=== PATIENT | female | born 1980 | race Caucasian/White ===

== ENCOUNTER 2025-05-01 14:03 | Emergency (ER) | payer BC ==
[~2025-05-01] VITALS: Ht 165.1 cm; Wt 102.1 kg
[2025-05-01 14:13] VITALS: TEMP 98.2
--- NOTE | 2025-05-01 14:18 | Physician Documentation ---
History of Present Illness Chief Complaint: Abdominal Pain w/vomiting Stated Complaint: ABD PAIN Time Seen by MD: 14:16 HPI Is a 44-year-old female who presents to the emergency department for onset of right lower quadrant abdominal pain that began last evening around 6:00 p.m.. She denies any chills or fever, but does note that she has had one episode of vomiting. Soft stools. No dysuria. No previous abd surgery hx. Medication Reconciliation Allergies: Coded Allergies: Penicillins (Verified Allergy, Unknown, 05/01/25) Scheduled Ciprofloxacin HCl (Cipro), 1 TAB PO Q12H Metronidazole* (Flagyl*), 1 TAB PO Q8H Scheduled PRN Hydrocodone Bit/Acetaminophen 5/325 MG (Pratts 5/325 MG), 1 TAB PO TID PRN PRN for pain Ondansetron 8mg ODT (Ondansetron Odt), 1 TAB PO TID PRN for nausea/vomiting Review of Systems ROS As stated above in the HPI, otherwise all systems are reviewed and negative. Physical Exam Vital Signs: Temperature: 98.2, Source: Oral, Heart Rate: 106, Respiratory Rate: 18, BP: 140/80, Pulse Oximetry: 96, Weight: 102.100 Oxygen Flow Rate: 0 Physical Exam General: Alert, mild distress. Neck: Full range of motion. Respiratory: Lungs clear, no respiratory distress. Chest: No accessory muscle use. Cardiovascular: Regular rate and rhythm, no murmurs. Gastrointestinal: Soft, TTP RLQ with guarding, nondistended. Bowels sounds present. Extremities: Normal range of motion, no deformity. Neurologic: Oriented x4. Psychiatric: Normal mood and affect. Skin: Normal color, warm and dry. No edema, no ecchymosis. Progress EKG/XRAY/CT/US/VASC/MRI CT : Impression [facility] [address], [place], [place] - [address] CAT SCAN Patient: FIDEL WALTERS Medical Record: [id number] [facility] : 1980, Age: 44 Sex: Female Location: ER Patient Status: REG ER Service Date/Time: 05/01/25 1631 Ordering Physician: BRITTANY COYLE NP Exam: CT ABDOMEN PELVIS COMPUTERIZED TOMOGRAPHY ABDOMEN AND PELVIS WITH CONTRAST REASON FOR EXAM: Right lower quadrant abdominal pain, leukocytosis COMPARISON: None TECHNIQUE: The exam was performed on a Multidetector scanner. Spiral scans were acquired from the diaphragm to the symphysis pubis after administration of IV contrast. 2-D coronal and sagittal reformatted images were provided. Radiation optimization: All CT scans at this facility use at least one of these dose optimization techniques: Automated exposure control mA and/or kV adjustment per patient size (includes targeted exams where dose is matched to clinical indication) or iterative reconstruction. RADIATION DOSE: CTDI: 35 mGy DLP: 1905 mGy-cm FINDINGS: There is minimal dependent atelectasis in bilateral lower lobes of the lungs. There is no pleural effusion. There is no pericardial effusion. The spleen is not enlarged. The liver is normal in size and contour. The hepatic veins are patent. The portal vein is patent. There are gallstones. The gallbladder wall appears mildly thickened. There is no pericholecystic edema. The pancreas is unremarkable. The adrenal glands are normal. The kidneys enhance symmetrically. No solid renal mass is identified. There is no hydronephrosis of either kidney. There is no abdominal aortic aneurysm. There is no pathologic lymphadenopathy by size criteria. The urinary bladder is unremarkable. The uterus and ovaries are within normal limits. There is sigmoid diverticulosis. There is focal inflammation about a diverticulum in the mid sigmoid with inflammatory changes extending to 2 adjacent loops of small bowel causing small-bowel wall thickening. The colonic stool burden is small. The appendix is normal. There is no evidence of small-bowel obstruction. No free fluid is identified in the abdomen or pelvis. There is no pneumoperitoneum. No acute osseous abnormality is identified. IMPRESSION: Mid sigmoid diverticulitis with inflammation extending to two adjacent loops of small bowel causing small bowel wall thickening. Electronically Signed by:CRISTOPHER DE LA CRUZ MD Date & Time: 05/01/25 1708 Dictated by: CRISTOPHER DE LA CRUZ MD Dictation date and time: 05/01/25 1631 Primary Care Provider: NO PRIMARY CARE PROVIDER cc: BRITTANY COYLE NP ~ Medical Decision Making Additional information obtaine: family Findings No previous visits to this hospital. Differential Dx:Considerations: Appendicitis, Bowel obstruction, Cholangitis, Cholelithasis, Constipation, Diverticular disease, Esophageal rupture, Esophagitis, Gastritis/PUD, Gastroenteritis, GI hemorrhage, Hernia, Hepatitis, Inflammatory BD, Ischemic bowel, Ovarian cyst/torsion, Pancreatitis, PID, Porphyria, Trauma, intraabdominal, Urinary obstruction, Urinary tract infection, Urolithiasis Additional Comments Most Likely Diagnoses: Acute appendicitis: Right lower quadrant pain with guarding, nausea, and vomiting are classic for appendicitis, even in the absence of fever. Mild urinary and bowel symptoms can occur due to local inflammation irritating adjacent structures.[1] Right ureteric stone/nephrolithiasis: Ureteral stones can cause right lower quadrant pain, urinary symptoms, and nausea/vomiting. Guarding is less typical but may occur with severe pain or associated inflammation.[2] Pelvic inflammatory disease (PID): PID can present with lower abdominal pain, urinary and bowel discomfort, and nausea. Guarding may be present, but fever and cervical motion/adnexal tenderness are more typical.[3] Ruptured or hemorrhagic ovarian cyst: Sudden-onset pain, sometimes with mild urinary or bowel symptoms, is common. Guarding may occur if there is significant peritoneal irritation.[4] Uncomplicated urinary tract infection (UTI)/cystitis: UTI can cause lower abdominal pain and urinary symptoms, but guarding and significant nausea/vomiting are less typical.[5] Gastroenteritis or inflammatory bowel disease flare: These can present with abdominal pain, nausea, vomiting, and changes in stool, but guarding is less common unless there is severe inflammation.[6] Right-sided colonic diverticulitis: Although less common than left-sided, a redundant sigmoid colon or right colonic diverticulitis can present with right lower quadrant pain, nausea, and guarding.[7] Most Important Not to Miss Diagnoses: Ectopic : Always consider in women of reproductive age. Rule out with a urine or serum ?-hCG and pelvic ultrasound if is possible.[1][3] Ovarian torsion: Presents with acute pain, nausea/vomiting, and sometimes gu arding. Prompt pelvic ultrasound with Doppler is needed to assess ovarian blood flow.[8] Mesenteric ischemia: Severe pain out of proportion to exam, often with nausea/vomiting and bowel symptoms. Consider in patients with vascular risk factors; CT angiography is diagnostic. Departure Time of Disposition: 17:39 Disposition: 01 HOME / SELF CARE / HOMELESS Impression: Primary Impression: Diverticulitis Additional Impression: Abdominal pain Qualified Codes: R10.31 - Right lower quadrant pain Discharge Instructions: Diverticulitis Additional Instructions: ### Diverticulitis Home Care Guide What is diverticulitis? Diverticulitis happens when small pouches in your colon (large intestine) become inflamed or infected. This can cause pain, usually in the lower left side of your belly, and sometimes fever, nausea, or changes in your bowel movements.[1] Why do I need a colonoscopy? After you recover from diverticulitis, your doctor may recommend a colonoscopy in about 68 weeks. This is to make sure there isnt another problem, like colon cancer, since sometimes the symptoms can look similar. If youve had a recent colonoscopy (within the past year) and it was normal, you may not need another one right away.[2][3][1] How is diverticulitis treated at home? Most people with mild diverticulitis can be treated at home. You will take antibiotics for 47 days to help your body fight the infection. Its important to take all your medicine as prescribed, even if you start feeling better.[3][4][1] What should I eat? - Start with clear liquids (like broth, gelatin, or clear juices) if your pain is bad. - As you feel better, slowly add low-fiber foods (like white bread, rice, eggs, and chicken). - Once your symptoms improve, you can return to your normal diet. - In the penitentiary, eating a high-fiber diet (fruits, vegetables, whole grains) may help prevent future problems.[5][6] How can I lower my risk of another episode? - Eat a healthy, high-fiber diet. - Stay physically active. - Keep a healthy weight. - Dont smoke. - Avoid regular use of pain medicines like ibuprofen unless your doctor tells you to.[3][5][6] When should I call the doctor or go to the ER? - If your pain gets much worse or spreads to your whole belly - If you develop a fever over 101F (38.3C) - If you start vomiting and cant keep fluids down - If you notice blood in your stool or black, tarry stools - If you feel very weak, dizzy, or faint What else should I know? Most people recover from diverticulitis in a few days to a week. About 1 in 5 people may have another episode in the future. If you have questions or concerns, contact your healthcare provider.[1] Referrals: NO PRIMARY CARE PROVIDER (PCP) Prescriptions Hydrocodone Bit/Acetaminophen 5/325 MG (Pratts 5/325 MG) 5 Mg/325 Mg Tablet 1 TAB PO TID PRN PRN for pain for 5 Days, #15 TAB Prov: BRITTANY COYLE NP 05/01/25 Ondansetron 8mg ODT (Ondansetron Odt) 8 Mg Tab.rapdis 1 TAB PO TID PRN for nausea/vomiting, #10 TAB Prov: BRITTANY COYLE NP 05/01/25 Metronidazole* (Flagyl*) 500 Mg Tablet 1 TAB PO Q8H for 7 Days, #21 TAB Prov: BRITTANY COYLE NP 05/01/25 Ciprofloxacin HCl (Cipro) 500 Mg Tablet 1 TAB PO Q12H for 7 Days, #14 TAB Prov: BRITTANY COYLE NP 05/01/25 Education Educated: Patient, Family Educated regarding: diagnosis, treatment, prognosis, need for follow up Signature Scribe Signature: x Attestation: The note accurately reflects work and decisions made by me.Brittany Rogers NP 05/01/25 14:18 BRITTANY COYLE NP May 01, 2025 14:18
[2025-05-01 15:24] LABS: LEUKOCYTE ESTERASE ,URINE NEGATIVE (Neg); OCCULT BLOOD,URINE TRACE-INTACT (Neg)
[2025-05-01 15:26] LABS: NITRITES, URINE NEGATIVE (Neg); UA COLLECTION TYPE CLN CATCH MIDSTREAM
[2025-05-01 15:30] LABS: URINE HCG NEGATIVE (NEG)
[2025-05-01 15:32] LABS: SQUAMOUS EPITHELIAL CELL,UR FEW /LPF (FEW)
[2025-05-01 15:32] LABS: MEAN PLATELET VOLUME 7.0 FL (7.4-10.4); RED CELL DISTRIBUTION WIDTH 13.6 % (11.5-14.5)
[2025-05-01 15:56] LABS: CREATININE 0.75 MG/DL (0.40-0.90); TOTAL CARBON DIOXIDE 26.7 MMOL/L (24-32); eCRCL 86 ML/MIN; eGFR 84 ML/MIN
[2025-05-01] MEDS ORDERED: iohexol 300mg/ml 100ml inj. ONE (16:12)
[2025-05-01] MEDS: ondansetron/PF 4mg/2ml inj IV ONE ×2 (16:17→18:36)
[2025-05-01] MEDS: morphine 4 MG/ML inj SYRINge IV ONE ×2 (16:17→18:36)
[2025-05-01] MEDS: normal saline 1000ml 1,000 ML IV ONE (16:18)
--- NOTE | 2025-05-01 17:10 | RADIOLOGY REPORT ---
COMPUTERIZED TOMOGRAPHY ABDOMEN AND PELVIS WITH CONTRAST REASON FOR EXAM: Right lower quadrant abdominal pain, leukocytosis COMPARISON: None TECHNIQUE: The exam was performed on a Multidetector scanner. Spiral scans were acquired from the diaphragm to the symphysis pubis after administration of IV contrast. 2-D coronal and sagittal reformatted images were provided. Radiation optimization: All CT scans at this facility use at least one of these dose optimization techniques: Automated exposure control mA and/or kV adjustment per patient size (includes targeted exams where dose is matched to clinical indication) or iterative reconstruction. RADIATION DOSE: CTDI: 35 mGy DLP: 1905 mGy-cm FINDINGS: There is minimal dependent atelectasis in bilateral lower lobes of the lungs. There is no pleural effusion. There is no pericardial effusion. The spleen is not enlarged. The liver is normal in size and contour. The hepatic veins are patent. The portal vein is patent. There are gallstones. The gallbladder wall appears mildly thickened. There is no pericholecystic edema. The pancreas is unremarkable. The adrenal glands are normal. The kidneys enhance symmetrically. No solid renal mass is identified. There is no hydronephrosis of either kidney. There is no abdominal aortic aneurysm. There is no pathologic lymphadenopathy by size criteria. The urinary bladder is unremarkable. The uterus and ovaries are within normal limits. There is sigmoid diverticulosis. There is focal inflammation about a diverticulum in the mid sigmoid with inflammatory changes extending to 2 adjacent loops of small bowel causing small-bowel wall thickening. The colonic stool burden is small. The appendix is normal. There is no evidence of small-bowel obstruction. No free fluid is identified in the abdomen or pelvis. There is no pneumoperitoneum. No acute osseous abnormality is identified. IMPRESSION: Mid sigmoid diverticulitis with inflammation extending to two adjacent loops of small bowel causing small bowel wall thickening.
[2025-05-01] MEDS ORDERED: ONDA-245 PO (17:37)
[2025-05-01] MEDS ORDERED: CIPR-259 PO (17:37)
[2025-05-01] MEDS ORDERED: METR-159 PO (17:37)
[2025-05-01] MEDS ORDERED: HYDR-3964 PO (17:37)
[2025-05-01] MEDS ORDERED: HYDR-3965 PO (17:39)
[2025-05-01] MEDS: CefTRIAXone 2gm/D5W 50ml BAG 50 ML IV STA (18:08)
[2025-05-01] MEDS: metroNIDAZOLE-Flagyl 500mg/NS 100 ML IV STA (18:36)
[2025-05-01 20:26] VITALS: BP 106/72; PULSE 100; RESP 20; O2SAT 93
== END 2025-05-01 20:29 | disposition home or self-care (01) ==
LOC: ER 14:03
DX: K57.32 Diverticulitis of large intestine without perforation or abscess without bleeding (principal); Z88.0 Allergy status to penicillin
CPT/HCPCS: 36415; 74177; 80048; 80076; 81001; 81025; 83690; 85025; 86140; 96361; 96365; 96368; 96375; 96376; 99285; J0696; J2270; J2405; J3490; J7030; Q9967